=== PATIENT | female | born 1965 ===

== ENCOUNTER 2021-05-01 08:30 | Inpatient (IN) | payer OTHER ==
[~2021-05-01] VITALS: Ht 170.2 cm; Wt 81.6 kg
[2021-05-01] MEDS ORDERED: METFORMIN HCL500 M3 PO (11:04)
[2021-05-01] MEDS ORDERED: COZAAR50 MG PO (11:04)
[2021-05-01] MEDS ORDERED: WELLBUTRIN XL300 MG PO (11:05)
[2021-05-06] MEDS ORDERED: QNASL10.6 GM (10:33)
[2021-05-06] MEDS ORDERED: PROGESTERONE200 MG (10:33)
[2021-05-06] MEDS ORDERED: VALACYCLOVIR1000 MG (10:33)
[2021-05-06] MEDS ORDERED: VITAMIN D31250 MCG (10:33)
== END 2021-05-07 12:13 | disposition home or self-care (01) | DRG 743 ==
LOC: O/R 05-06 06:51 → SURH 05-06 08:30 → OB/GYN 05-06 13:15
PROVIDERS: ADMIT Obstetrics & Gynecology Gynecology; ATTEND Obstetrics & Gynecology Gynecology
PROC: 0UT7FZZ Resection of Bilateral Fallopian Tubes, Via Natural or Artificial Opening With Percutaneous Endoscopic Assistance (ICD-10-PCS; 2021-05-06)
PROC: 0UT2FZZ Resection of Bilateral Ovaries, Via Natural or Artificial Opening With Percutaneous Endoscopic Assistance (ICD-10-PCS; 2021-05-06)
PROC: 0UT9FZZ Resection of Uterus, Via Natural or Artificial Opening With Percutaneous Endoscopic Assistance (ICD-10-PCS; principal; 2021-05-06 09:45)
DX: D25.1 Intramural leiomyoma of uterus (principal); D25.2 Subserosal leiomyoma of uterus; D25.0 Submucous leiomyoma of uterus; Z20.822 Contact with and (suspected) exposure to COVID-19; N72 Inflammatory disease of cervix uteri